=== PATIENT | female | born 1980 | race Caucasian/White ===

== ENCOUNTER 2019-07-23 13:33 | Outpatient (CLI) | payer OTHER ==
--- NOTE | 2019-07-23 14:40 | RAD ---
AP PELVIS: HISTORY: Lumbago with sciatica. FINDINGS/IMPRESSION: No fracture, dislocation, or bony destruction is seen.. POS: [facility]
--- NOTE | 2019-07-23 14:40 | RAD ---
LUMBAR SPINE THREE VIEWS: 07/23/19 HISTORY: Lumbago with sciatica. FINDINGS/IMPRESSION: No fracture, subluxation or bony destruction is seen. The disc space and vertebral heights are mainta ined. POS: [facility]
== END 2019-07-23 13:34 | disposition home or self-care (01) ==
LOC: BICRAD 13:33
PROVIDERS: ATTEND Family Medicine
DX: M54.40 Lumbago with sciatica, unspecified side (principal); R10.2 Pelvic and perineal pain
CPT/HCPCS: 72100; 72170

== ENCOUNTER 2019-08-06 13:22 | Outpatient (CLI) | payer OTHER ==
--- NOTE | 2019-08-06 14:24 | MMO ---
Bilateral MAMMO Bilat Screen [facility]. CLINICAL HISTORY: Patient is 38 years old and is seen for screening. The patient has the following family history of breast cancer: sister. The patient has no personal history of cancer. VIEWS: The views performed were: bilateral craniocaudal with tomosynthesis and bilateral mediolateral oblique with tomosynthesis. This study has been interpreted with the assistance of computer-aided detection. MAMMOGRAM FINDINGS: The breasts are heterogeneously dense, which could obscure a lesion on mammography. Benign calcifications are noted bilaterally. There are no suspicious masses, suspicious calcifications, or new areas of architectural distortion. IMPRESSION: THERE IS NO MAMMOGRAPHIC EVIDENCE OF MALIGNANCY. A ROUTINE FOLLOW-UP MAMMOGRAM AT AGE 42 IS RECOMMENDED. THE RESULTS OF THIS EXAM WERE SENT TO THE PATIENT. ACR BI-RADS Category 2 - Benign finding MAMMOGRAPHY NOTE: 1. A negative mammogram report should not delay a biopsy if a dominant of clinically suspicious mass is present. 2. Approximately 10% to 15% of breast cancers are not detected by mammography. 3. Adenosis and dense breasts may obscure an underlying neoplasm. Reported by: Naveen PAREKH Electonically Signed: [id number]
--- NOTE | 2019-08-06 14:40 | ULT ---
ULTRASOUND PELVIC TRANSVAGINAL WITH DOPPLER : 08/06/19 HISTORY: Pain. COMPARISON: None. FINDINGS: Real time harris scale, color Doppler and spectral analysis of the pelvis performed transabdominally an d transvaginal approach. The uterus is normal. The endometrial thickness is 8 mm, normal. The right ovary is not seen. The left ovary is normal with a small simple cyst measuring up to 2 cm i n size. IMPRESSION: 1. 2 cm simple cyst of the left ovary. 2. Right ovary not seen. 3. Normal endometrial cavity. POS: [facility]
== END 2019-08-06 13:23 | disposition home or self-care (01) ==
LOC: BICMAMMO 13:22
PROVIDERS: ATTEND Family Medicine
DX: Z12.31 Encounter for screening mammogram for malignant neoplasm of breast (principal); R10.2 Pelvic and perineal pain; M54.40 Lumbago with sciatica, unspecified side; N83.202 Unspecified ovarian cyst, left side; Z80.3 Family history of malignant neoplasm of breast
CPT/HCPCS: 76856; 77063; 77067

== ENCOUNTER 2019-09-01 07:18 | Outpatient (CLI) | payer OTHER ==
[2019-09-01 18:04] LABS: Hemoglobin 13.4 g/dL (12.0-16.0); Mean Corpuscular HGB CONC 34.1 g/dL (32.0-36.0); Mean Corpuscular Hemoglobin 31.8 pg (27.0-31.0); Mean Corpuscular Volume 93.1 fL (78.0-98.0); Mean Platelet Volume 7.7 fL (7.4-10.4); Platelet Count 360 thou/uL (130-400); RBC Distribution Width 11.7 % (11.5-14.5); Red Blood Cell (RBC) Count 4.23 mill/uL (4.20-5.40); White Blood Cell (WBC) Count 9.1 thou/uL (4.8-10.8)
[2019-09-01 18:18] LABS: BHCG - Serum Negative (NEGATIVE); Pregs Control Background? CLEAR/WHITE (CLR/WHITE); Pregs Control Bar Appear? YES (CONTROL BAR)
[2019-09-01 18:35] LABS: Anion Gap 14 mmol/L (10-20); BUN (Urea Nitrogen) 11 mg/dL (7.0-18.7); Calc. Creatinine Clearance 0 mL/min (70-130); Carbon Dioxide 22 mmol/L (22-29); Chloride 105 mmol/L (98-107); Estimated GFR-MDRD 78; Glucose 143 mg/dL (70-105); Sodium 137 mmol/L (136-145)
[2019-09-02 12:45] LABS: SARS-CoV-2 MS2 Positive; SARS-CoV-2 N Gene Negative; SARS-CoV-2 S Gene Negative; SARS-CoV-2 orf1ab Negative
== END 2019-09-01 07:19 | disposition home or self-care (01) ==
LOC: LABBT 07:18
PROVIDERS: ATTEND Podiatrist Foot & Ankle Surgery
DX: Z01.812 Encounter for preprocedural laboratory examination (principal); Z11.59 Encounter for screening for other viral diseases; M21.611 Bunion of right foot; M25.374 Other instability, right foot
CPT/HCPCS: 80048; 84703; 85027; 87635; U0003

== ENCOUNTER 2019-09-04 11:06 | Day surgery (SDC) | payer OTHER ==
[2019-08-31 13:01] VITALS: BMI 37.5
[2019-09-04] MEDS ORDERED: Sodium Chloride 0.9% 100 ML ONE (11:24)
[2019-09-04] MEDS ORDERED: CEFAZOLIN 1 GM VIAL ONE (11:24)
[2019-09-04] MEDS ORDERED: Ondansetron PF 4 MG/2 ML Vial ONE (11:36)
[2019-09-04] MEDS ORDERED: Lidocaine 1% PF 5 ML VIAL ONE (11:36)
[2019-09-04] MEDS ORDERED: PROPOFOL 200 MG/20 ML VIAL ONE (11:36)
[2019-09-04] MEDS ORDERED: Neomycin-Polymyxin 1 ML AMP ONE (12:53)
[2019-09-04] MEDS ORDERED: Bupivacaine PF 0.5% 30 ML VIAL ONE (12:53)
[2019-09-04] MEDS ORDERED: Fentanyl 100 MCG/2 ML VIAL ONE ×5 (13:01→16:18)
[2019-09-04] MEDS ORDERED: Midazolam HCl 2 mg/2 ml Vial ONE (13:02)
[2019-09-04] MEDS ORDERED: ROPIVACAINE 0.2% ONE (15:17)
[2019-09-04] MEDS ORDERED: Meperidine HCl/PF 25 MG/ML VIAL ONE (15:57)
--- NOTE | 2019-09-04 16:45 | RAD ---
Radiograph right foot 3 views: DATE: 09/04/2019 HISTORY: 38-year-old female with right foot pain and hallux valgus, status post Hodgson fusion. COMPARISON: 07/15/2014 FINDINGS: There has been interval reduction of the previously demonstrated hallux valgus metatarsus primus varu s, with resection of the medial aspect of the first metatarsal head. There is new hardware consisting of long metallic plate and screws from first cuneiform 2 mid diaphysis of first metatarsal . Additional 2 screws, one transversely oriented through first and second cuneiforms, and third one from base of first metatarsal 2 first cuneiform. Subcutaneous emphysema at the medial aspect of the foot indicates very recent status of surgery. Flattening of the heads of the second and third metatarsals, again noted, although slightly improved with slight remodeling. Linear lucencies across the proximal metaphysis of second metatarsal and mid diaphysis of third metat arsal artifact from previous removed hardware. IMPRESSION: 1. Very recently status post bunionectomy and arthrodesis with hardware across the first tarsometatar nancy joint and medial intercuneiform joint. 2. 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
[2019-09-04] MEDS ORDERED: Sodium Chloride 0.9% 10 ML ONE (17:25)
[2019-09-04] MEDS ORDERED: Promethazine HCl 25 MG/ML VIAL ONE (17:25)
--- NOTE | 2019-09-04 23:17 | OP ---
DATE OF PROCEDURE: 09/04/2019 PREOPERATIVE DIAGNOSES: Bunion with midfoot instability, right foot and pain, right foot. POSTOPERATIVE DIAGNOSES: Bunion with midfoot instability, right foot and pain, right foot. PROCEDURES PERFORMED: Metatarsal cuneiform fusion with cuneiform to cuneiform joint fusion, right foot. Hodgson bunionectomy, right foot. ANESTHESIA: General with local foot block. HEMOSTASIS: Pneumatic calf tourniquet at 200 mmHg. ESTIMATED BLOOD LOSS: Less than 10 mL. MATERIALS: 2-0 Vicryl, 4-0 Monocryl, and 4-0 Prolene. IMPLANTS: Mentor 28 Lapidus plate right with 2.7 mm locking screws and two 3.5 mm headless compression screws. INJECTABLES: 25 mL of 0.5% Marcaine plain. DESCRIPTION OF PROCEDURE: The patient was brought into the operating room and placed on the operating table in supine position. Well-padded pneumatic ankle tourniquet was placed about the patient's right calf. Following administration of IV anesthesia, local foot block was given utilizing 25 mL of 0.5% Marcaine plain. The foot was then scrubbed, prepped, and draped in usual aseptic manner. Esmarch bandage was used to exsanguinate the patient's right foot and lower extremity and the pneumatic calf tourniquet was then inflated to 200 mmHg, which provided adequate hemostasis throughout the entire procedure. Next, attention was then directed to the metatarsal cuneiform joint, where a 4 cm linear longitudinal incision was made over the dorsal aspect of the foot. The incision was deepened to the level of the bone, where soft tissue attachments were then carefully resected. Next, utilizing techniques and principles of Mentor 28, a cut guide was then placed in the joint. Fluoroscopy was used to assure proper alignment and correction, all were noted to be correct at this time. Next, an 8-degree wedge of bone was then carefully resected. The joint was then fenestrated after removing the bony pieces, and fluoroscopy was used to assure that no remaining bone remained in the joint. Next, a right Mentor 28 Lapidus plate was then placed across the joint and held in place with temporary fixation. An interfrag screw was then placed from dorsal medial to proximal plantar across the joint and all five holes were then drilled and 2.7 mm locking screws were then placed across the plate. At this time, attention was then directed to the medial cuneiform, where a 3.5 mm screw was placed across the medial cuneiform into the intermediate cuneiform. Fluoroscopy was used to ensure proper alignment and correction, all were noted to be correct at this time. The incision was then extended to the head of the first metatarsal, where the medial prominence was carefully resected and passed from the operative field. A T-type capsulotomy was performed due to redundant capsule and a lateral release was then performed at this time. The wound was irrigated with copious amounts of sterile normal saline and mixture and the skin was closed utilizing 2-0 Vicryl for deep closure, 4-0 Monocryl for subcuticular closure, and 4-0 Prolene for skin closure. An On-Q pain pump catheter was then placed under the incision and the pneumatic ankle tourniquet was released after a light compressive dressing was placed on the right foot. DISCHARGE SUMMARY: The patient tolerated the procedure and anesthesia and was transferred to the recovery room with vital signs stable and vascular status intact to all digits of the right foot. Following period of postoperative monitoring, the patient is to be discharged home. Should she have any problems prior to the first postoperative appointment, she is advised to call or be seen within one week of the procedure. Job ID: [id number]
== END 2019-09-04 18:15 | disposition home or self-care (01) ==
LOC: SDC 11:06
PROVIDERS: ATTEND Podiatrist Foot & Ankle Surgery
PROC: 0SGK0JZ Fusion of Right Tarsometatarsal Joint with Synthetic Substitute, Open Approach (ICD-10-PCS; principal; 2019-09-04)
DX: M20.11 Hallux valgus (acquired), right foot (principal); F41.9 Anxiety disorder, unspecified; E78.2 Mixed hyperlipidemia; E55.9 Vitamin D deficiency, unspecified; M54.9 Dorsalgia, unspecified; D53.9 Nutritional anemia, unspecified; Z79.899 Other long term (current) drug therapy
CPT/HCPCS: C1713; J0690; J2001; J2175; J2250; J2405; J2550; J2704; J2795; J3010; J3490; S0020

== ENCOUNTER 2019-12-09 09:09 | Outpatient (CLI) | payer OTHER ==
--- NOTE | 2019-12-09 12:11 | ULT ---
ULTRASOUND LEFT BREAST LIMITED: DATE: 12/09/2019. HISTORY: A 39-year-old female with mastitis. COMPARISON: No prior breast ultrasounds. FINDINGS: Initially, only the retroareolar region was canned. However, the medial portions of left lateral cystic structures were noted, and further investigation of that area was performed. At the left 3 o'clock position, there are 2 cystic lesions. The largest one is located more laterall y, measuring approximately 2.4 x 1.4 x 2.3 cm, and contains a small septation. The other one is slightly medial to that, measuring 1.5 x 0.8 x 1.4 cm. The margins are smooth. The re is no acoustic shadowing. There is acoustic posterior through transmission enhancement. No blood flow demonstrated by Doppler. No solid component identified. In the retroareolar region, ductal ectasia is visualized. IMPRESSION: Two cystic lesions in the lateral aspect of the left breast. These are favored to represent benign c ysts rather than abscesses. Followup ultrasound is recommended only if patient becomes symptomatic l ater (the patient is currently asymptomatic following antibiotic treatment). POS: [facility]
== END 2019-12-09 09:10 | disposition home or self-care (01) ==
LOC: BICULT 09:09
PROVIDERS: ATTEND Surgery
DX: N61.0 Mastitis without abscess (principal); N60.12 Diffuse cystic mastopathy of left breast